=== PATIENT | female | born 1995 | race American Indian/Alaskan Native ===

== ENCOUNTER 2017-04-25 00:29 | Emergency (ER) | payer SELFPAY ==
--- NOTE | 2017-04-25 00:52 | ED ---
GI/ HPI - HPI Summary HPI Summary: 21 female presents to ED with complaints of vaginal pain and bright red blood after straining bowel movement with wiping. Rectal bleeding began today and had an episode last week, vaginal pain has been ongoing for the past month. Rectal bleeding is scant when wiping after straining bowel movement and bright red in color. Patient denies vaginal discharge, itching, abdominal pain, urinary symptoms and external genitalia symptoms. Is and denies any concern for STDs at this time, [place] . LMP was 1 month ago, patient is due soon. Last had intercourse "a month ago". States she is very constipated and feels a lot of pressure and pain when trying to use the bathroom. Denies fever, chills, back pain, nausea, vomiting, and other complaints. No PMHx. Has not tried taking any medication. - History of Current Complaint Chief Complaint: EDAbdPain Time Seen by Provider: 04/25/17 00:45 Stated Complaint: VAGINAL PAIN Hx Obtained From: Patient Hx Last Menstrual Period: 1 month ago Onset/Duration: Started Weeks Ago Timing: Constant Severity: Mild Current Severity: Moderate Pain Intensity: 99 Location of Pain: Other - vaginal Pain Characteristics: Aching, Pressure Associated Signs and Symptoms: Positive: Rectal Pain, Constipation. Negative: Fever, New Sexual Partner, UTI Symptoms Additional Signs & Symptoms: Positive: Menses Regular. Negative: Vaginal Bleeding, Vaginal Discharge Aggravating Factor(s): Straining, Movement, Bowel Movement Alleviating Factor(s): Rest, Position - Additional Pertinent History Primary Care Physician: [id number] - Allergy/Home Medications Allergies/Adverse Reactions: Allergies Allergy/AdvReac Type Severity Reaction Status Date / Time Clavulanic Acid Allergy Mild Hives Verified 01/31/16 18:25 [From Augmentin] Amoxicillin Allergy Hives Verified 01/31/16 18:25 Cephalosporins Allergy Hives Verified 01/31/16 18:25 PMH/Surg Hx/FS Hx/Imm Hx Endocrine/Hematology History: Denies: Hx Diabetes, Hx Thyroid Disease Cardiovascular History: Denies: Hx Congestive Heart Failure, Hx Hypertension, Hx Syncope Respiratory History: Reports: Hx Seasonal Allergies, Other Respiratory Problems/ Disorders - frequent shortness of breath Denies: Hx Asthma, Hx Chronic Obstructive Pulmonary Disease (COPD) GI History: Reports: Other GI Disorders - PYLORIC STENOSIS- SX. REPAIR Denies: Hx Ulcer History: Denies: Hx Renal Disease Neurological History: Reports: Hx Headaches, Hx Seizures Denies: Hx Dementia, Hx Migraine Psychiatric History: Reports: Hx Anxiety, Hx Attention Deficit Hyperactivity Disorder, Hx Depression, Hx Inpatient Treatment, Hx Community Mental Health Tx, Other Psychiatric Issues/Disorders - psycological seizures Denies: Hx Eating Disorder, Hx Suicide Attempt, Hx of Violent Episodes Against Others - Surgical History Surgery Procedure, Year, and Place: EYE SURGERY AND FOR PYLORIC STENOSIS Hx Anesthesia Reactions: No - Immunization History Immunizations Up to Date: Yes Infectious Disease History: No Infectious Disease History: Denies: Hx Hepatitis, Hx Human Immunodeficiency Virus (HIV), Hx Shingles, Traveled Outside the [place] in Last 30 Days - Family History Known Family History: Positive: None, Cardiac Disease, Diabetes, Other - bipolar disorder - mother, fluid issues - Social History Alcohol Use: None Substance Use Type: Reports: Marijuana Substance Use Comment - Amount & Last Used: marijuana once Hx Tobacco Use: Yes Smoking Status (MU): Light Every Day Tobacco Smoker Type: Cigarettes Amount Used/How Often: 2 cigarettes a week Length of Time of Smoking/Using Tobacco: 6years + Have You Smoked in the Last Year: Yes Review of Systems Constitutional: Negative Cardiovascular: Negative Respiratory: Negative Positive: Other - rectal bleeding intermittently Positive: other - vaginal pain All Other Systems Reviewed And Are Negative: Yes Physical Exam Triage Information Reviewed: Yes Vital Signs On Initial Exam: Initial Vitals Temp Pulse Resp BP Pulse Ox 98.9 F 113 16 131/81 99 04/25/17 00:31 04/25/17 00:31 04/25/17 00:31 04/25/17 00:31 04/25/17 00:31 tachycardia noted, improved at visit, patient anxious and in pain. HR:81 Vital Signs Reviewed: Yes Appearance: Positive: Well-Appearing, Well-Nourished, Pain Distress - mild Skin: Positive: Warm, Skin Color Reflects Adequate Perfusion, Dry. Negative: Jaundiced ENT: Positive: Pharynx normal Neck: Positive: Supple, Nontender Respiratory/Lung Sounds: Positive: Clear to Auscultation, Breath Sounds Present. Negative: Rales, Rhonchi, Wheezes Cardiovascular: Positive: Normal, RRR, Pulses are Symmetrical in both Upper and Lower Extremities. Negative: Murmur, Rub Abdomen Description: Positive: Nontender, No Organomegaly, Soft, Other: - mild discomfort of suprapubic area on palpation. rectal exam normal on examination. guiac test completed. no sign of hemorrhoids or visualized fissure. Negative: CVA Tenderness (R), CVA Tenderness (L), Distended, Guarding Bowel Sounds: Positive: Present Pelvic Exam: Positive: external exam normal, bimanual exam normal, no masses, cervicitis - erosion versus ectropian, erythema of cervix noted no bleeding and non-friable, tender w/ cervical motion. Negative: active bleeding, discharge, lesions, mass, tender adnexa, tender uterus Musculoskeletal: Positive: Normal, Strength/ROM Intact Neurological: Positive: Normal, Sensory/Motor Intact, Alert, Oriented to Person Place, Time. Negative: Abnormal Gait - shuffling when walking due to "vaginal pain" per patient Diagnostics - Vital Signs Vital Signs Temp Pulse Resp BP Pulse Ox 04/25/17 00:31 98.9 F 113 16 131/81 99 - Laboratory Lab Statement: Any lab studies that have been ordered have been reviewed, and results considered in the medical decision making process. GIGU Course/Dx - Course Course Of Treatment: negative guiac. no concern for GI bleed at this time. negative external exam both vaginal and rectal. appears patient is suffering from a internal hemorrhoid or anal fissure due to intermittent bright red rectal bleeding with bowel movements. Encouraged follow up with PCP for further evaluation and treatment if continues. Recommended stool softeners and high fiber diet to help with constipation and symptoms, also increase fluid intake. Cultures obtained with pelvic exam, urinalysis obtianed. Due to PE findings had Dr Bar also evaluate and perform pelvic exam and stated it appears to be a cervicitis and have patient follow up with pcp. Patient given toradol for pain and inflammation. Spoke with patient about prophylactic treatment before obtaining culture results. Determined treatment will be started once culture results received, if positive. No distinct discharge or odor on exam. Did have CMT. Did have WBC, Leuk and blood in urinaylsis, however asymptomatic and will wait for culture results. Could be from vaginal infection. Encouraged ibuprofen to help with pain, good hygeine. Phone number was updated to ensure contact for culture results. nomral vitals and afebrie. No other concerns at this time. Follow up OBGYN and PCP. - Diagnoses Differential Diagnoses - Female: Hemorrhoids, Pelvic Inflammatory Disease, Rectal Fissure, STD, Urinary Tract Infection, Vaginitis Provider Diagnoses: Vaginal pain, Cervicitis, Rectal bleeding, Anal fissure Discharge - Discharge Plan Condition: Stable Disposition: HOME Patient Education Materials: Cervicitis (ED), Rectal Bleeding (ED), Anal Fissure (ED) Referrals: David Banda MD [Medical Doctor] - Non Staff,Doctor [Primary Care Provider] - Marcial Mancini MD [Medical Doctor] - Additional Instructions: Please make an appointment to follow up with OBGYN for follow up evaluation. Stool softeners to help with straining bowel movements/constipation. Along with high fiber diet and increased fluids. Any new or worsening symptoms please return. Ibuprofen for pain. You will hear about culture results if positive in a few days.
[2017-04-25] MEDS ORDERED: Ketorolac INJ* 30 MG/ML 1 ML VIAL IM ONE (01:55)
[2017-04-25 01:56] VITALS: BP 114/81
[2017-04-25 03:21] LABS: Urine Bacteria Absent (Absent); Urine Bilirubin Negative (Negative); Urine Glucose Negative (Negative); Urine Nitrite Negative (Negative)
--- NOTE | 2017-04-26 12:05 | ED ---
Progress - Progress Note Progress Note: Pt's vaginal cx reveals BV and chlamydia - she has not received tx yet for either. Spoke w/ pt who agrees to tx with doxycycline and metro vaginal anbx as well as f/u retesting for chlamydia at [facility], abstinence until cleared and notifying her partner(s) so they may be treated as well. Reviewed danger s/sx of when to return to ED. Explained risks of not treating these conditions as well as continuing to have intercourse w/o thoroughly treating. Pt voices understanding and agrees w/ plan. Provided w/ written education on BV, chlamydia and rx voucher for [facility] as well as contact information for [facility] for retesting. She will come to ED now to acquire documents. Course/Dx - Course Course Of Treatment: negative guiac. no concern for GI bleed at this time. negative external exam both vaginal and rectal. appears patient is suffering from a internal hemorrhoid or anal fissure due to intermittent bright red rectal bleeding with bowel movements. Encouraged follow up with PCP for further evaluation and treatment if continues. Recommended stool softeners and high fiber diet to help with constipation and symptoms, also increase fluid intake. Cultures obtained with pelvic exam, urinalysis obtianed. Due to PE findings had Dr Bar also evaluate and perform pelvic exam and stated it appears to be a cervicitis and have patient follow up with pcp. Patient given toradol for pain and inflammation. Spoke with patient about prophylactic treatment before obtaining culture results. Determined treatment will be started once culture results received, if positive. No distinct discharge or odor on exam. Did have CMT. Did have WBC, Leuk and blood in urinaylsis, however asymptomatic and will wait for culture results. Could be from vaginal infection. Encouraged ibuprofen to help with pain, good hygeine. Phone number was updated to ensure contact for culture results. nomral vitals and afebrie. No other concerns at this time. Follow up OBGYN and PCP. - Diagnoses Provider Diagnoses: Vaginal pain, Cervicitis, Rectal bleeding, Anal fissure
== END 2017-04-25 02:00 | disposition home or self-care (01) ==
LOC: ED 00:29
DX: K59.00 Constipation, unspecified (principal); K62.89 Other specified diseases of anus and rectum; F17.210 Nicotine dependence, cigarettes, uncomplicated
CPT/HCPCS: 81003; 81015; 82270; 87077; 87086; 87186; 87480; 87491; 87510; 87591; 87661; 99282; J1885

== ENCOUNTER 2017-04-27 06:03 | Emergency (ER) | payer SELFPAY ==
[2017-04-27] MEDS ORDERED: NS 0.9% 1000 ML* 1,000 ML IV SCH (06:15)
[2017-04-27 06:47] LABS: Hematocrit 38 % (35-47); Hemoglobin 12.7 g/dl (12.0-16.0); Mean Corpuscular HGB Conc 34 g/dl (31-36); Mean Corpuscular Hemoglobin 29 pg (27-31); Mean Corpuscular Volume 87 fL (80-97); Mean Platelet Volume 9 um3 (7.4-10.4); Red Blood Count 4.34 10^6/ul (4.0-5.4); Red Cell Distribution Width 13 % (10.5-15); White Blood Count 10.7 10^3/ul (3.5-10.8)
--- NOTE | 2017-04-27 06:49 | ED ---
Bear Tillman Stephanie, scribed for Lupillo Kemp on 04/27/17 at 0619 . Abdominal Pain/Female - HPI Summary HPI Summary: Pt is a 21 y/o F with c/o abdominal pain that began 40 min ago. Symptoms include nausea. Pt was recently diagnosed with chlamydia. - History of Current Complaint Chief Complaint: EDUrogenitalProblems Stated Complaint: VAGINAL PAIN Time Seen by Provider: 04/27/17 06:05 Hx Obtained From: Patient Hx Last Menstrual Period: 1 month ago Onset/Duration: Lasting Minutes - 30, Still Present Timing: Constant Pain Intensity: 10 Pain Scale Used: 0-10 Numeric Location: Discrete At: RLQ, Discrete At: LLQ Aggravating Factor(s): Movement, Other: - palpation Alleviating Factor(s): Nothing Associated Signs and Symptoms: Positive: Nausea Allergies/Adverse Reactions: Allergies Allergy/AdvReac Type Severity Reaction Status Date / Time Clavulanic Acid Allergy Mild Hives Verified 04/27/17 06:06 [From Augmentin] Amoxicillin Allergy Hives Verified 04/27/17 06:06 Cephalosporins Allergy Hives Verified 04/27/17 06:06 PMH/Surg Hx/FS Hx/Imm Hx Endocrine/Hematology History: Denies: Hx Diabetes, Hx Thyroid Disease Cardiovascular History: Denies: Hx Congestive Heart Failure, Hx Hypertension, Hx Syncope Respiratory History: Reports: Hx Seasonal Allergies, Other Respiratory Problems/ Disorders - frequent shortness of breath Denies: Hx Asthma, Hx Chronic Obstructive Pulmonary Disease (COPD) GI History: Reports: Other GI Disorders - PYLORIC STENOSIS- SX. REPAIR Denies: Hx Ulcer History: Denies: Hx Renal Disease Neurological History: Reports: Hx Headaches, Hx Seizures Denies: Hx Dementia, Hx Migraine Psychiatric History: Reports: Hx Anxiety, Hx Attention Deficit Hyperactivity Disorder, Hx Depression, Hx Inpatient Treatment, Hx Community Mental Health Tx, Other Psychiatric Issues/Disorders - psycological seizures Denies: Hx Eating Disorder, Hx Suicide Attempt, Hx of Violent Episodes Against Others - Surgical History Surgery Procedure, Year, and Place: EYE SURGERY AND FOR PYLORIC STENOSIS Hx Anesthesia Reactions: No - Immunization History Date of Tetanus Vaccine: utd Date of Influenza Vaccine: 2016 Infectious Disease History: No Infectious Disease History: Denies: Hx Hepatitis, Hx Human Immunodeficiency Virus (HIV), Hx Shingles, Traveled Outside the [place] in Last 30 Days - Family History Known Family History: Positive: None, Cardiac Disease, Diabetes, Other - bipolar disorder - mother, fluid issues - Social History Alcohol Use: None Substance Use Type: Reports: Marijuana Substance Use Comment - Amount & Last Used: marijuana once Hx Tobacco Use: Yes Smoking Status (MU): Light Every Day Tobacco Smoker Type: Cigarettes Amount Used/How Often: 2 cigarettes a week Length of Time of Smoking/Using Tobacco: 6years + Have You Smoked in the Last Year: Yes Review of Systems Negative: Fever Positive: Abdominal Pain, Nausea All Other Systems Reviewed And Are Negative: Yes Physical Exam - Summary Physical Exam Summary: Appearance: Well appearing, moderate pain distress Skin: warm, dry, reflects adequate perfusion Head/face: normal Eyes: EOMI, SHIMA ENT: normal Neck: supple, non-tender Respiratory: CTA, breath sounds present Cardiovascular: RRR, pulses symmetrical Abdomen: tenderness in right and left lower quadrants Bowel: present Musculoskeletal: normal, strength/ROM intact Neuro: normal, sensory motor intact, A&Ox3 Triage Information Reviewed: Yes Vital Signs On Initial Exam: Initial Vitals Temp Pulse Resp BP Pulse Ox 99.2 F 102 18 130/89 98 04/27/17 06:05 04/27/17 06:05 04/27/17 06:05 04/27/17 06:05 04/27/17 06:05 Vital Signs Reviewed: Yes - Penny Coma Scale Coma Scale Total: 15 Diagnostics - Vital Signs Vital Signs Temp Pulse Resp BP Pulse Ox 04/27/17 06:05 99.2 F 102 18 130/89 98 - Laboratory Lab Statement: Any lab studies that have been ordered have been reviewed, and results considered in the medical decision making process. Abdominal Pain Fem Course/Dx - Course Course Of Treatment: Pt is a 21 y/o F with c/o abdominal pain that began 40 min ago. Symptoms include nausea. Pt was recently diagnosed with chlamydia. Blood tests and UA were obtained. Pt is diagnosed with abdominal pain. Pt is a sign out to Dr. Chaudhry. - Diagnoses Differential Diagnosis: Positive: Appendicitis, Ovarian Cyst, Pelvic Inflammatory Disease, Urinary Tract Infection Provider Diagnoses: Abdominal pain Discharge - Discharge Plan Condition: Stable Disposition: OTHER Discharge Disposition Comment: signed out Referrals: Non Staff,Doctor [Primary Care Provider] - The documentation as recorded by the Bear alfaro Stephanie accurately reflects the service I personally performed and the decisions made by me, Lupillo Kemp.
[2017-04-27 06:54] LABS: Urine Bacteria Absent (Absent); Urine Bilirubin Negative (Negative); Urine Glucose Negative (Negative); Urine Nitrite Negative (Negative)
[2017-04-27 07:03] LABS: ALT 10 U/L (7-52); AST 14 U/L (13-39); Albumin 4.5 g/dL (3.2-5.2); Alkaline Phosphatase 64 U/L (34-104); Anion Gap 8 mmol/L (2-11); BUN/Creatinine Ratio 14.8 (8-20); Blood Urea Nitrogen 12 mg/dL (6-24); CO2 Carbon Dioxide 25 mmol/L (22-32); Calcium 9.8 mg/dL (8.6-10.3); Chloride 106 mmol/L (101-111); EGFR African American 117.1 (>60); EGFR Non-African American 91.1 (>60); Globulin 3.8 g/dL (2-4); Glucose 78 mg/dL (70-100); Lipase 10 U/L (11.0-82.0); Potassium 3.6 mmol/L (3.5-5.0); Sodium 139 mmol/L (133-145); Total Protein 8.3 g/dL (6.4-8.9)
[2017-04-27] MEDS ORDERED: Morphine INJ* 4 MG/ML 1 ML CARPUJECT IV ONE (07:50)
[2017-04-27] MEDS ORDERED: Ondansetron INJ* 2 MG/ML VIAL IV ONE (07:50)
[2017-04-27] MEDS ORDERED: Phenazopyridine TAB* 100 MG PO ONE (07:51)
[2017-04-27] MEDS ORDERED: Ciprofloxacin 400MG IVPREMIX(* 400 MG/200 ML BAG IVPB ONE (07:51)
[2017-04-27] MEDS ORDERED: Azithromycin TAB* 250 MG PO ONE (07:52)
[2017-04-27] MEDS ORDERED: metroNIDAZOLE IV 500 MG/100ML* 500 MG/100 ML BAG IVPB ONE (07:54)
[2017-04-27] MEDS ORDERED: Iohexol 300* (CONTRAST) 10 ML SDV IV ONE (08:05)
[2017-04-27] MEDS: NS 0.9% 1000 ML* 2,000 ML IV ONE (08:32)
--- NOTE | 2017-04-27 09:10 | RAD ---
INDICATION: Abdominal tenderness. Evaluate for acute appendicitis COMPARISON: Gallbladder sonogram February 04, 2016 TECHNIQUE: Axial source images were obtained from the hemidiaphragms to the symphysis pubis following administration of oral and intravenous contrast. 105 mL Omnipaque 300 was utilized. Coronal and sagittal reconstructed images were acquired. Lung bases: The lung bases are clear. Liver: The liver is normal in size. There are no new masses. There is an area of decreased attenuation near the falciform ligament which is likely related to focal fatty infiltration and would be consistent with the earlier ultrasound findings. There is no ductal dilatation. Gallbladder: There are no calcified gallstones. There is no evidence of wall thickening or pericholecystic fluid. Spleen: The spleen is normal in size. There are no masses. Pancreas: There is no focal pancreatic mass or ductal dilatation. Adrenal glands: There is no evidence of adrenal mass. Kidneys: The kidneys are normal in size and position. There are prompt nephrograms and there is prompt excretion bilaterally. There are no renal parenchymal masses. There is no evidence of nephrolithiasis. Adenopathy: There is no evidence of adenopathy by size criteria. Fluid collections: There is a small amount of free fluid in the cul-de-sac. Vessels:There are no significant atherosclerotic changes involving the aorta. There is no focal aneurysm. The iliac vessels are normal in caliber. The IVC appears normal. GI tract: There are no acute CT bowel findings. There is no obstruction. The stomach and small bowel appear normal. The lower GI tract is normal. The cecum, ileocecal valve, and terminal ileum appear normal. The appendix is visualized and appear normal. Pelvic organs: The uterus and right adnexa are normal. There is a 4.5 cm left adnexal cyst Bladder: There are no bladder masses. Abdominal and pelvic soft tissues: The extraperitoneal abdominal and pelvic soft tissues appear normal.. Osseous structures: There are no acute osseous findings. Other: None IMPRESSION: 4.5 CM LEFT ADNEXAL CYST AND ASSOCIATED SMALL AMOUNT OF FREE FLUID IN THE CUL-DE-SAC NORMAL APPENDIX . SUGGEST FOLLOW-UP ULTRASONOGRAPHY IN ONE TO 2 MENSTRUAL CYCLES.
--- NOTE | 2017-04-27 10:29 | RAD ---
INDICATION: 21-year-old with abdominal tenderness. CT negative for acute appendicitis. Left sided cyst identified on CT. ED request for pelvic sonography. COMPARISON: CT same date TECHNIQUE: Longitudinal and transverse transabdominal scans of the pelvis were obtained. The patient declined transvaginal imaging. FINDINGS: Uterus: The uterus is normal in size. There are no focal masses. The uterus measures 6.8 x 4.2 x 3.6 cm. Endometrial thickness: The endometrial thickness is measured at 0.6 cm. . Free fluid: There is no significant free fluid . Ovaries: The ovaries are normal in size. The right ovary measures 3.8 x 3.1 x 2.6 cm. The left ovary measures 4.6 x 4.1 x 5.7 cm. There is a complex cyst left ovary measuring 3.8 x 4.9 x 3.3 cm.. Doppler interrogation demonstrates flow to each ovary. Other: None IMPRESSION: COMPLEX 4.9 CM LEFT OVARIAN CYST CONSISTENT WITH EARLIER CT FINDINGS. FOLLOW-UP ULTRASONOGRAPHY IN ONE TO 2 MONTHS IS SUGGESTED. SEE ALSO PRECEDING CT REPORT.
--- NOTE | 2017-04-27 11:47 | PN ---
Megan Tillman Emily, scribed for Tyron Chaudhry MD on 04/27/17 at 0810 . Progress Note - Progress Note Date of Service: 04/27/17 Note: Sign-out from Dr. Kemp upon shift change. Pending CT abdomen and pelvis. 0745 Evaluation HPI This patient is a 21 year old F presenting to [facility] with a chief complaint of vaginal, pelvic pain that began earlier today. Pt states pain began upon application of Metrogel. Pt reports nausea, hematochezia, and dysuria. Patient denies fevers and chills. Pt was seen by a provider 2 days ago, and was diagnosed with bacterial vaginitis and chlamydia. Pt was prescribed PO doxycycline and Metrogel. Physical Exam General: well-appearing, no pain distress Skin: warm, color reflects adequate perfusion, dry Head: normal Eyes: EOMI, SHIMA ENT: normal Neck: supple, nontender Respiratory: CTA, breath sounds present Cardiovascular: RRR Abdomen: soft, mild suprapubic tenderness Bowel: positive bowel sounds Musculoskeletal: normal, strength/ROM intact Neurological: normal, sensory/motor intact, A&O x3 Psychological: affect/mood appropriate Diagnostics: CT abdomen/pelvis reveals, per radiologist, 4.5 cm left adnexal cyst and associated small amount of free fluid in the cul-de-sac. Normal appendix. Suggest follow-up ultrasonography in one to [address] Chaudhry has reviewed this radiology report. Re-Evaluations: First: Re-evaluation at 0949. Patient's symptoms have improved. Second: Re-evaluation at 1125. Discussed plan of care with patient. Assessment and Plan IV fluids. Pain medicines. IV ciprofloxacin for the UTI. Azithromycin 1 g PO for the chlamydia. Flagyl 500 mg V for the BV. PATIENT IS POSITIVE FOR UTI, BV AND CHLAMYDIA. NEGATIVE FOR GONORRHEA, TRICH AND YEAST. THE METROGEL CAUSED A GREAT DEAL OF PAIN AND THE PATIENT CAME TO THE ED TODAY BECAUSE OF THAT. WILL STOP THE METROGEL AND START FLAGYL 500MG PO BID X 7 DAYS. CHLAMYDIA WAS BEING TREATED WITH DOXY, HAD ONE DAY OF DOXY FOR THIS. GIVEN AZITHRO 1GM IN ED TODAY SO, CAN DISCONTINUE THE DOXY. UTI WILL RX BACTRIM AND PYRIDIUM. IMPROVED IN ED DISCUSSED RESULTS WITH PATIENT. F/U PMD; RETURN IF WORSE. The documentation as recorded by the Megan alfaro Emily accurately reflects the service I personally performed and the decisions made by me, Tyron Chaudhry MD.
[2017-04-27 12:24] VITALS: BP 115/84
--- NOTE | 2017-04-28 08:50 | PN ---
Progress Note - Progress Note Date of Service: 04/25/17 Note: Patient treated for UTI with bactrim. urine culture results show >100,000 of e. coli. final culture results show susceptibility to bactrim. therefore no changes required at this time.
== END 2017-04-27 12:24 | disposition home or self-care (01) ==
LOC: ED 06:03
DX: R10.30 Lower abdominal pain, unspecified (principal); R11.0 Nausea; F17.210 Nicotine dependence, cigarettes, uncomplicated
CPT/HCPCS: 36415; 74177; 76856; 80053; 81003; 81015; 83690; 84702; 85025; 86703; 87086; 96361; 96374; 99283; A9270-GY; J0744; J2270; J2405; J3490; Q9967

== ENCOUNTER 2017-05-02 02:23 | Emergency (ER) | payer SELFPAY ==
[2017-05-02 04:57] LABS: ABS Basophils 0.1 10^3/ul (0-0.2); ABS Eosinophils 0.3 10^3/ul (0-0.6); ABS Lymphocytes 3.1 10^3/ul (1.0-4.8); ABS Monocytes 0.6 10^3/ul (0-0.8); ABS Neutrophils 3.1 10^3/ul (1.5-7.7); ABS Nucleated RBC 0.01 10^3/ul; Eosinophil % 3.6 % (0-6); Hematocrit 37 % (35-47); Hemoglobin 12.5 g/dl (12.0-16.0); Lymphocyte % 44.1 % (25-47); Mean Corpuscular HGB Conc 34 g/dl (31-36); Mean Corpuscular Hemoglobin 29 pg (27-31); Mean Corpuscular Volume 87 fL (80-97); Mean Platelet Volume 9 um3 (7.4-10.4); Nucleated Red Blood Cells % 0.1; Platelet Count 279 10^3/ul (150-450); Red Blood Count 4.24 10^6/ul (4.0-5.4); Red Cell Distribution Width 14 % (10.5-15); White Blood Count 7.1 10^3/ul (3.5-10.8)
[2017-05-02 05:08] LABS: Urine Appearance Cloudy; Urine Blood 3+ (Negative); Urine Color Amber; Urine Ketones Negative (Negative); Urine Protein 2+(100 mg/dL) (Negative); Urine Specific Gravity 1.016 (1.010-1.030); Urine Urobilinogen Negative (Negative)
[2017-05-02 05:15] LABS: EGFR Non-African American 83.9 (>60)
[2017-05-02 05:54] VITALS: BP 109/63
--- NOTE | 2017-05-02 19:46 | ED ---
Megan Tillman Emily, scribed for Lupillo Kemp on 05/02/17 at 0425 . GI/ HPI - HPI Summary HPI Summary: This patient is a 21 year old F presenting [facility] [place] accompanied by friend with a chief complaint of hematuria that began earlier today. The patient rates the pain 9/10 in severity. Symptoms aggravated by nothing. Symptoms alleviated by nothing. Patient reports dysuria. Pt reports that she has recently been diagnosed with chlamydia, yeast infection, BV, and UTI. - History of Current Complaint Chief Complaint: EDUrogenitalProblems Stated Complaint: VAGINAL BLEEDING Hx Obtained From: Patient Hx Last Menstrual Period: 1 month ago Onset/Duration: Started Hours Ago, Still Present Timing: Constant, Lasting Hours Severity: Severe Current Severity: Severe Pain Intensity: 9 Aggravating Factor(s): Nothing Alleviating Factor(s): Nothing - Additional Pertinent History Primary Care Physician: [id number] - Allergy/Home Medications Allergies/Adverse Reactions: Allergies Allergy/AdvReac Type Severity Reaction Status Date / Time Clavulanic Acid Allergy Mild Hives Verified 05/02/17 02:37 [From Augmentin] Amoxicillin Allergy Hives Verified 05/02/17 02:37 Cephalosporins Allergy Hives Verified 05/02/17 02:37 PMH/Surg Hx/FS Hx/Imm Hx Previously Healthy: No Endocrine/Hematology History: Denies: Hx Diabetes, Hx Thyroid Disease Cardiovascular History: Denies: Hx Congestive Heart Failure, Hx Hypertension, Hx Syncope Respiratory History: Reports: Hx Seasonal Allergies, Other Respiratory Problems/ Disorders - frequent shortness of breath Denies: Hx Asthma, Hx Chronic Obstructive Pulmonary Disease (COPD) GI History: Reports: Other GI Disorders - PYLORIC STENOSIS- SX. REPAIR Denies: Hx Ulcer History: Denies: Hx Renal Disease Neurological History: Reports: Hx Headaches, Hx Seizures Denies: Hx Dementia, Hx Migraine Psychiatric History: Reports: Hx Anxiety, Hx Attention Deficit Hyperactivity Disorder, Hx Depression, Hx Inpatient Treatment, Hx Community Mental Health Tx, Other Psychiatric Issues/Disorders - psycological seizures Denies: Hx Eating Disorder, Hx Suicide Attempt, Hx of Violent Episodes Against Others - Surgical History Surgery Procedure, Year, and Place: EYE SURGERY AND FOR PYLORIC STENOSIS Hx Anesthesia Reactions: No - Immunization History Date of Tetanus Vaccine: utd Date of Influenza Vaccine: 2016 Infectious Disease History: No Infectious Disease History: Denies: Hx Hepatitis, Hx Human Immunodeficiency Virus (HIV), Hx Shingles, Traveled Outside the [place] in Last 30 Days - Family History Known Family History: Positive: Cardiac Disease, Diabetes, Other - bipolar disorder - mother, fluid issues - Social History Occupation: Student Lives: Alone Alcohol Use: None Substance Use Type: Reports: Marijuana Substance Use Comment - Amount & Last Used: marijuana once Hx Tobacco Use: Yes Smoking Status (MU): Light Every Day Tobacco Smoker Type: Cigarettes Amount Used/How Often: 2 cigarettes a week Length of Time of Smoking/Using Tobacco: 6years + Have You Smoked in the Last Year: Yes Review of Systems Negative: Fever Positive: dysuria, hematuria All Other Systems Reviewed And Are Negative: Yes Physical Exam Triage Information Reviewed: Yes Vital Signs On Initial Exam: Initial Vitals Temp Pulse Resp BP Pulse Ox 98.1 F 110 18 153/83 98 05/02/17 02:33 05/02/17 02:33 05/02/17 02:33 05/02/17 02:33 05/02/17 02:33 Vital Signs Reviewed: Yes Appearance: Positive: Well-Appearing, No Pain Distress Skin: Positive: Warm, Skin Color Reflects Adequate Perfusion, Dry Head/Face: Positive: Normal Head/Face Inspection Eyes: Positive: EOMI, SHIMA ENT: Positive: Normal ENT inspection Neck: Positive: Supple, Nontender Respiratory/Lung Sounds: Positive: Clear to Auscultation, Breath Sounds Present Cardiovascular: Positive: RRR, Pulses are Symmetrical in both Upper and Lower Extremities Abdomen Description: Positive: Nontender, Soft Bowel Sounds: Positive: Present Musculoskeletal: Positive: Normal, Strength/ROM Intact Neurological: Positive: Normal, Sensory/Motor Intact, Alert, Oriented to Person Place, Time Psychiatric: Positive: Affect/Mood Appropriate Diagnostics - Vital Signs Vital Signs Temp Pulse Resp BP Pulse Ox 05/02/17 02:33 98.1 F 110 18 153/83 98 - Laboratory Result Diagrams: 05/02/17 04:40 05/02/17 04:40 Lab Statement: Any lab studies that have been ordered have been reviewed, and results considered in the medical decision making process. GIGU Course/Dx - Course Assessment/Plan: This patient is a 21 year old F presenting to [facility] [place] accompanied by friend with a chief complaint of hematuria that began earlier today. Pt reports that she has recently been diagnosed with chlamydia, yeast infection, BV, and UTI. Physical Exam Findings. Normal. UA obtained. Patient will be discharged with follow up from PCP. Pt has already been prescribed antibiotics and has been told to continue the course. The patient is agreeable with this plan. - Diagnoses Provider Diagnoses: UTI (urinary tract infection) Discharge - Discharge Plan Condition: Stable Disposition: HOME Patient Education Materials: Urinary Tract Infection in Women (ED) Referrals: [facility] [place] PHYSICIAN REFERRAL [Outside] - 3 Days Non Staff,Doctor [Primary Care Provider] - Additional Instructions: RETURN TO THE ED FOR NEW OR WORSENING SYMPTOMS The documentation as recorded by the Megan alfaro Emily accurately reflects the service I personally performed and the decisions made by , Lupillo Kemp.
== END 2017-05-02 05:55 | disposition home or self-care (01) ==
LOC: ED 02:23
DX: N39.0 Urinary tract infection, site not specified (principal); F17.210 Nicotine dependence, cigarettes, uncomplicated; Z88.0 Allergy status to penicillin
CPT/HCPCS: 36415; 80053; 81003; 81015; 83690; 84702; 85025; 87086